=== PATIENT | female | born 2000 | race Caucasian/White ===

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

== ENCOUNTER 2019-10-25 09:56 | Emergency (ER) | payer BC, MEDICAID ==
[~2019-10-25] VITALS: Ht 154.9 cm; Wt 47.9 kg
[2019-10-25] MEDS ORDERED: ONDANSETRON ODT 4 MG PO ONE (11:30)
[2019-10-25] MEDS ORDERED: MAALOX/HYOSCYAMINE/LIDOCAINE 45 ML BTL PO ONE (11:30)
--- NOTE | 2019-10-25 11:33 | NUR ---
PT HERE WITH C/O NAUSEA AND VOMITTING SINCE FRIDAY MORNING. PT STATES SHE DRANK ON FRIDAY NIGHT AND IS UNSURE IF SHE DRANK SOMETHING "BAD." PT AAO X 4, NAD, ROOM AIR, DRESSED IN GOWN AND ATTACHED TO MONITOR. UA SENT TO LAB.
[2019-10-25 11:40] LABS: ALANINE AMINOTRANSFERASE 21 U/L (12-78); ALBUMIN 4.2 g/dL (3.4-5.0); ANION GAP 7 mmol/L (5-15); CALCIUM 9.1 mg/dL (8.5-10.1); CHLORIDE 105 mmol/L (98-107)
[2019-10-25] MEDS ORDERED: MAALOX/HYOSCYAMINE/LIDOCAINE 45 ML BTL ONE (11:41)
[2019-10-25] MEDS ORDERED: ONDANSETRON ODT 4 MG ONE (11:41)
[2019-10-25 11:43] VITALS: BP 114/68
--- NOTE | 2019-10-25 11:43 | NUR ---
PT MEDICATED PER MAR.
[2019-10-25 11:45] LABS: ALKALINE PHOSPHATASE 73 U/L (45-117); BILIRUBIN,TOTAL 1.1 mg/dL (0.2-1.0); TOTAL PROTEIN 7.8 g/dL (6.4-8.2)
[2019-10-25 11:53] LABS: MICROSCOPIC AUTO
[2019-10-25 12:01] LABS: CULTURE INDICATED? NO
[2019-10-25 12:06] LABS: BASOPHILS # (AUTO) 0.03 x10^3/uL (0-0.3); BASOPHILS % (AUTO) 0 % (0-1); EOSINOPHILS # (AUTO) 0.14 x10^3/uL (0-0.8); EOSINOPHILS % (AUTO) 2 % (1-7); LYMPHOCYTES # (AUTO) 2.06 x10^3/uL (1-6.1); LYMPHOCYTES % (AUTO) 23 % (22-44); MD NO; MEAN CORPUSCULAR HEMOGLOBIN 32.7 pg (27.0-34.8); MEAN CORPUSCULAR VOLUME 99.2 fL (80-100); MONOCYTES # (AUTO) 0.52 x10^3/uL (0-1.4); MONOCYTES % (AUTO) 6 % (2-9); NEUTROPHILS # (AUTO) 6.37 x10^3/uL (1.8-8.0); NEUTROPHILS % (AUTO) 70 % (42-75); PLATELET COUNT 266 x10^3/uL (130-400); RED BLOOD COUNT 4.95 x10^6/uL (3.82-5.3); RED CELL DISTRIBUTION WIDTH 12.8 % (9.6-15.2)
--- NOTE | 2019-10-25 12:15 | NUR ---
ALL RESULTS BACK AT THIS TIME, CHART UP FOR RECHECK.
--- NOTE | 2019-10-25 12:20 | NUR ---
PA AT BEDSIDE FOR REASSESSMENT.
--- NOTE | 2019-10-25 12:30 | NUR ---
Patient/Caregiver given discharge instructions and they have confirmed that they understand the instructions. Patient ambulatory with steady gait.
== END 2019-10-25 12:32 | disposition home or self-care (01) ==
LOC: ED 12:00
DX: R11.2 Nausea with vomiting, unspecified (principal); R10.13 Epigastric pain; F17.200 Nicotine dependence, unspecified, uncomplicated
CPT/HCPCS: 36415; 80053; 81001; 83690; 84703; 85025; 99283; Q0162

== ENCOUNTER 2019-11-15 13:21 | Emergency (ER) | payer BC ==
[~2019-11-15] VITALS: Ht 154.9 cm; Wt 49.1 kg
[2019-11-15 14:07] LABS: BASOPHILS # (AUTO) 0.04 x10^3/uL (0-0.3); BASOPHILS % (AUTO) 1 % (0-1); EOSINOPHILS # (AUTO) 0.07 x10^3/uL (0-0.8); EOSINOPHILS % (AUTO) 1 % (1-7); LYMPHOCYTES # (AUTO) 1.61 x10^3/uL (1-6.1); LYMPHOCYTES % (AUTO) 19 % (22-44); MD NO; MEAN CORPUSCULAR HEMOGLOBIN 32.4 pg (27.0-34.8); MEAN CORPUSCULAR HGB CONC 33.6 g/dL (32.4-35.8); MEAN CORPUSCULAR VOLUME 96.4 fL (80-100); MEAN PLATELET VOLUME 8.5 fL (7.4-10.4); MONOCYTES # (AUTO) 0.52 x10^3/uL (0-1.4); MONOCYTES % (AUTO) 6 % (2-9); NEUTROPHILS # (AUTO) 6.42 x10^3/uL (1.8-8.0); NEUTROPHILS % (AUTO) 74 % (42-75); PLATELET COUNT 291 x10^3/uL (130-400); RED BLOOD COUNT 4.81 x10^6/uL (3.82-5.3); RED CELL DISTRIBUTION WIDTH 12.8 % (9.6-15.2)
[2019-11-15 14:15] LABS: ALBUMIN 3.8 g/dL (3.4-5.0); ANION GAP 7 mmol/L (5-15); CALCIUM 8.7 mg/dL (8.5-10.1); CHLORIDE 108 mmol/L (98-107)
--- NOTE | 2019-11-15 16:53 | NUR ---
raker buffing wheel: [facility] at this time.
--- NOTE | 2019-11-15 17:01 | NUR ---
FIRST CONTACT WITH PT. PT STATES "I'M HAVING STOMACH PAIN, I FEEL LIKE I'M GOING TO THROW UP AND I HAVE DIARRHEA THAT STARTED THIS MORNING." DENIES , AND URINARY SYMPTOMS. PT'S AOX4. RESPS EVEN AND UNLABORED. DENIES ANY OTHER SYMPTOMS.
--- NOTE | 2019-11-15 17:01 | NUR ---
PT AMB TO BR WITH STEADY GAIT FOR UA.
--- NOTE | 2019-11-15 17:07 | NUR ---
ua sent at this time.
[2019-11-15 17:18] LABS: MICROSCOPIC NOT IND
[2019-11-15 17:21] LABS: CULTURE INDICATED? NO
[2019-11-15] MEDS ORDERED: ONDANSETRON ODT 4 MG PO ONE (17:30)
[2019-11-15] MEDS ORDERED: ONDANSETRON ODT 4 MG ONE (17:33)
--- NOTE | 2019-11-15 17:34 | NUR ---
pt medicated per emar. pt tolerated well.
[2019-11-15 17:43] LABS: ALBUMIN 3.8 g/dL (3.4-5.0); BILIRUBIN, DIRECT 0.2 mg/dL (0.1-0.2)
[2019-11-15 17:45] LABS: BILIRUBIN,INDIRECT 0.3 mg/dL (0.0-2.0); BILIRUBIN,TOTAL 0.5 mg/dL (0.2-1.0); TOTAL PROTEIN 7.2 g/dL (6.4-8.2)
[2019-11-15 18:26] VITALS: BP 110/56
== END 2019-11-15 18:28 | disposition home or self-care (01) ==
LOC: ED 17:25
DX: R10.84 Generalized abdominal pain (principal); R19.7 Diarrhea, unspecified; F17.200 Nicotine dependence, unspecified, uncomplicated; R11.2 Nausea with vomiting, unspecified
CPT/HCPCS: 36415; 80048; 80076; 81003; 82040; 83690; 84443; 84703; 85025; 99284; Q0162

== ENCOUNTER 2020-05-13 22:21 | Emergency (ER) | payer BC ==
[~2020-05-13] VITALS: Ht 154.9 cm; Wt 56.7 kg
[2020-05-13 22:26] VITALS: BP 144/89
[2020-05-13] MEDS ORDERED: ACETAMINOPHEN 500 MG TABLET PO ONE (23:00)
[2020-05-13] MEDS ORDERED: DIPH,PERTUSS(ACELL),TET VAC/PF 0.5 ML IM-VACC ONE ×2 (23:00→23:40)
[2020-05-13] MEDS ORDERED: NEOSPORIN OINT. PKT 1 PACKET ONE (23:01)
[2020-05-13] MEDS ORDERED: ACETAMINOPHEN 500 MG TABLET ONE (23:40)
== END 2020-05-14 00:35 | disposition home or self-care (01) ==
LOC: ED 05-14 00:26
DX: S63.642A Sprain of metacarpophalangeal joint of left thumb, initial encounter (principal); S63.622A Sprain of interphalangeal joint of left thumb, initial encounter; S80.01XA Contusion of right knee, initial encounter; G89.11 Acute pain due to trauma; M79.642 Pain in left hand; W19.XXXA Unspecified fall, initial encounter; Y93.02 Activity, running; Y92.488 Other paved roadways as the place of occurrence of the external cause; Y99.8 Other external cause status
CPT/HCPCS: 29130; 90471; 90715; 99284